=== PATIENT | female | born 1980 | race Caucasian/White ===

== ENCOUNTER → 2023-05-06 | Outpatient (CLI) | payer OTHER, SELFPAY ==
--- NOTE | 2023-05-06 08:55 | RAD_ITS ---
INDICATION: INFERTILITY EXAMINATION/TECHNIQUE: Routine hysterosalpingography was performed. Total Fluoroscopic Time: 30 seconds AND number of Fluoroscopic Images: 2 OR Radiation dosage index: 11.95 mGy COMPARISON: No relevant prior comparison study available FINDINGS: The uterine cavity contour is unremarkable. There are no filling defects or abnormalities. Both fallopian tubes are patent. There is spill of contrast only from the right fallopian tube. RAD/Salpingogram IMPRESSION: Free spill from the right fallopian tube. Electronically Signed: Carl Gerber MD at 10:01 EST ,
--- OUTSIDE RECORDS SUMMARY | 2023-05-06 08:59 | XMS RPT_ITS | CCD ---
Author Name Unknown Address [address] [place] [address] Organization [facility] Care Team Providers Care Program Evaluator Name Role Phone Ra Mg Unavailable Unavailable PROVIDER, UNKNOWN Unavailable Unavailable Mg, Christopher Unavailable Unavailable Mg, Christopher Unavailable Unavailable Mg Christopher D Unavailable Unavailable Unavailable Unavailable Unavailable Mg, Christopher Unavailable Unavailable Mg Christopher D Unavailable Unavailable Mg, Christopher Unavailable Unavailable KIP ABRAMS Attending Unavail able Ra Mg Unavailable [phone] Unavailable Unavailable Ra Mg MD Primary Care Provider RA MG Primary Care Unavaila OLIVIA Maynard Attending Unavailable Medications Completed/Discontinued Medications Medication Drug Class(es) Dates Sig (Normalized) Sig (Original) Cetirizine (3 sources) Histamine-1 Receptor Antagonist cetirizine HCl (ZYRTEC ORAL) doxycycline monohydrate 50 mg oral capsule (3 sources) Tetracycline-clas s Drug Start: 12-21-2022 take 1 capsule by mouth once doxycycline monohydrate (MONODOX) 50 mg capsule Take 1 capsule by mouth every afternoon. 0 12/21/2022 Active Problems Problem Classification Problem Date Documented Da te Episodic/Chronic Esophageal disorders (6 sources) Gastroesophageal reflux disease; Translations: [Esophageal reflux] Chronic Female infertility (1 source) Primary female infertility; Translations: [Female infertility, unspecified] 03-14-2023 Chronic Immunizations and screening for infectious disease (2 sources) Patient encounter status; Translations: [Encounter for screening for human papillomavirus (HPV)] 01-28-2023 Episodic Other inflammatory condition of skin (4 sources) Rosacea; Translations: [Rosacea] Chronic Other screening for suspected conditions (not mental disorders or infectious disease) (1 source) Cancer cervix screening status; Translations: [Encounter for screening for malignant neoplasm of cervix] 01-28-2023 Episodic Results Test Name Value Interpretation Reference Range Facil ity Vital Signs Date Time Vital Sign Value Performing Clinician Chantel chong 01-28-2023 15:21-0400 Body height 168.3 cm Olivia Cantrell MD Work Phone: [facility] 01-28-2023 15:21-0400 Body weight 56.25 kg Olivia Cantrell MD Work Phone: [facility] 01-28-2023 15:21-0400 Diastolic blood pressure 62 mm[Hg] Olivia Cantrell MD Work Phone: [facility] 01-28-2023 15:21-0400 Systolic blood pressure 98 mm[Hg] Olivia Cantrell MD Work Phone: [facility] 05-14-2019 17:06-0500 BMI (Body Mass Index) 20.48 kg/m2 Ra Mg -[facility] Work Phone: 05-14-2019 17:06-0500 Body weight 56.7 kg Ra Mg [facility] Work Phone: 05-14-2019 17:06-0500 BP Diastolic 62 mm[Hg] Ra Mg [facility] Work Phone: Encounters Encounter Date Encounter Type Care Provider Facility Start: 05-02-2023 Telephone encounter Olivia Cantrell MD Work Phone: OB/Gynecology Procedures Date Procedure Procedure Detail Performing Clinician Adenoid excision Ra Mg Endoscopy Ra ahgen Plan of Treatment Date Care Activity Detail Author Start: 01-29-2028 Screening for malignant neoplasm of cervix [facility] Start: 03-28-2023 Depression Assessment Depression Assessment [facility] Start: 11-26-2022 Covid-19 Vaccine () Covid-19 Vaccine () [facility] Start: 11-26-2022 Influenza vaccination Influenza Vaccine (#1) [facility] Start: 09-22-2022 HPV Vaccine (2 - 3-dose SCDM series) HPV Vaccine (2 - 3-dose SCDM series) [facility] Start: 2022 Mammography Mammogram Screening [facility] Start: 2022 Screening for malignant neoplasm of breast Mammogram Screening [facility] Start: 03-28-2022 Depression Assessment Depression Assessment [facility] Start: 2012 HPV Testing HPV Testing [facility] Start: 2003 Pap Testing Pap Testing [facility] Start: 2001 Urine microalbumin profile DTaP,Tdap,Td Vaccine (1 - Tdap) [facility] Start: 2000 Hepatitis C Screening Hepatitis C Screening [facility] Start: 2000 Hepatitis C screening Hepatitis C Screening [facility] Start: 2000 HIV Screening HIV Screening [facility] Start: 2000 HIV screening HIV Screening [facility] Start: 1982 Hepatitis B Vaccine (1 of 3 - 3-dose series) Hepatitis B Vaccine (1 of 3 - 3-dose series) [facility] End: 02-27-2024 PAO SCREENING W LINETTE PAO SCREENING W LINETTE Radiology Routine Encounter for gynecological examination (general) (routine) without abnormal findings Encounter for screening mammogram for breast cancer 1 Occurrences starting 01/28/2023 until 02/27/2024 [facility] Work Phone: Immunizations Immunization Date Immunization Notes Care Provider Maria Del Carmen [facility] 08-25-2022 Human Papillomavirus 9-valent vaccine Olivia Cantrell MD Work Phone: [facility] Payers Date Payer Category Payer Unknown 2022 Unknown [id number] 1980 Unknown [id number] 2.. [id number] 1980 Unknown [id number] 2.. [id number] 1980 Unknown [id number] Unknown [id number] Unknown [id number] Social History Date Type Detail Facility [facility]ion [facility] Work Phone: Start: 01-28-2023 No advance directives No advance dir ectives [facility] Work Phone: Start: 01-28-2023 Tobacco smoking stat us [facility] Never smoked tobacco [facility] Start: 01-28-2023 Tobacco use and exposure Smokeless tobacco non-user [facility] Start: 01-28-2023 Alcohol intake Current drinke r of alcohol (finding) [facility] Start: 01-28-2023 Tobacco use panel [facility] Start: 1980 Sex Assigned At Not on file [facility] National Score (1-10 0), lower number is lower risk 58 [facility] Functional Status Date Assessment Result Facility NEGATED: Highlighted row Functional performance Functional status health issues are not documented Disease [facility] Work Phone: Mental Status Date Assessment Result Facility NEGATED: Highlighted row Cognitive function [Interpretation] Cognitive status health issues are not documented Disease [facility] Work Phone: Note 05-03-2023 Telephone Encounter - Trista Colbert LPN - 05/03/2023 4:35 PM ESTTelephone Encounter - Olivia Cantrell MD - 05/03/2023 4:03 PM EST Note Date & Type Note Facility 05-03-2023 Miscellaneous Notes Formattin g of this note might be different from the original. Pt returned call and was given below information and voiced understanding and had no further questions. Trista Colbert LPN' Have her take 600 mg of ibuprofen after breakfast before arrival. Thanks. Olivia Cantrell MD HSG is scheduled 05/06 @ 0845. Patient to arrive 15 min early to the hospital. Left message for patient to call office. Arabella Highman, RN Attempted to speak to [facility] scheduling. Phone rang continuously. No answer. Will try calling back. Arabella Carroll RN Tuesday this week sometime between my cases would be best. Ok if still bleeding lightly. Thanks! Patient called. Would like to proceed with scheduling HSG @ [facility]. 05/01/23 was cycle day 1. The order was faxed to [facility] in March. Looking at 05/09-05/11 what works best for your schedule? We will then call the hospital. Arabella Carroll RN documented in this encounter [facility] Note 03-14-2023 Telephone Encounter - Alejandra Emmanuel RN - 03/14/2023 4:27 PM ESTTelephone Encounter - Olivia Cantrell MD - 03/14/2023 1:59 PM EST Note Date & Type Note Facility 03-14-2023 Miscellaneous Notes Formattin g of this note might be different from the original. Left message for patient to call office. ALEJANDRA EMMANUEL RN Please give her contact information for [facility]- consult ordered. See if her did semen analysis as they will want that and offer to schedule HSG for her after next menses. Olivia Cantrell MD documented in this encounter [facility] Progress note 01-28-2023 Note Date & Type Note Facility 01-28-2023 Note HNO ID: [id number] Author: Olivia Cantrell MD Service: ? Author Type: Physician Type: Progress Notes Filed: 01/28/2023 3:53 PM Note Text: Mara is a 42 year old who presents for an annual gynecologic exam without complaints. Recently and would like to consider . Not preventing . Partner has never fathered a and does smoke 1 cigar a day. No other health issues. Menses: cycles every 28 days and 5 days of flow. Contraception: none HPV vaccine: had one Last Pap: n/a HPV: N/A History of abnormal pap: No Last mammogram: never Sexually active: Yes OB History T0 L0 SAB0 IAB0 Ectopic0 Multiple0 Live Births0 [employer] History LMP: 01/21/2023 (Exact Date), Having periods Age at Menarche: Age at First : Age at Menopause: [employer] History Comments: Sexual Activity: Yes; Male Contraception: No contraception data on record PAST MEDICAL HISTORY Diagnosis Date Rosacea PAST SURGICAL HISTORY Procedure Laterality Date ADENOIDECTOMY SECONDARY AGE 14/> EXTRACTION ERUPTED TOOTH/EXR ORAL SURGERY PROCEDURE gum surgery FAMILY HISTORY Problem Relation Age of Onset Skin Cancer Mother Skin Cancer Father Hypertension Father SOCIAL HISTORY Social History Tobacco Use Smoking status: Never Smokeless tobacco: Never Vaping Use Vaping Use: Never used Substance Use Topics Alcohol use: Yes Drug use: Never REVIEW OF SYSTEMS Abdomen: No abdominal pain, nausea, vomiting, diarrhea, or constipation. No bloating, early satiety, indigestion, or increased flatulence. Bladder: No dysuria, gross hematuria, urinary frequency, urinary urgency, or incontinence. Breast: No breast lumps, nipple d/c, overlying skin changes, redness or skin retraction. Allergies and current medication updated:Yes EXAM: BP 98/62 Ht 5' 6.25 (1.68m) Wt 124 lb (56.2kg) LMP 01/21/2023 BMI 19.86 kg/(m2). GENERAL: pleasant, female in no apparent distress HEENT: Normocephalic, atraumatic, mucus membranes moist, and no lesions NECK: Supple, full range of motion, no adenopathy, and thyroid normal DERMATOLOGY: Normal, without lesions, non-icteric, and non-hirsute BREAST: soft, non-tender, symmetric, no dominant mass, normal nipple-areolar complex, no lymphadenopathy, and no nipple discharge CHEST: Normal inspiratory effort ABDOMEN: soft, non-tender, and no masses PELVIC: external genitalia normal, normal Bartholin's glands, urethra, [place]'s glands, no vulvar lesions, no cervical lesions, good vaginal support, physiologic discharge present, normal appearing perineal body and perianal region BIMANUAL: uterus normal size, shape and consistency, no adnexal masses, and non-tender RECTOVAGINAL: deferred. NEURO: alert and oriented x3,exam grossly non-focal EXTREMITIES: normal ASSESSMENT/PLAN: 1) Health maintenance: Pap done with HPV. Mammogram starting age 40. 2) Contraception: none. Contraceptive options reviewed and information provided. 3) STD screening: Declined STD check. 4) Follow up one year or sooner as needed Recommended folic acid supplement in anticipation of . Olivia Cantrell MD [facility] History of Present illness Narrative 01-28-2023 Olivia Cantrell MD - 01/28/2023 3:12 PM EDT Note Date & Type Note Facility 01-28-2023 History of Presen t illness Narrative Mara is a 42 year old who presents for an annual gynecologic exam without complaints. Recently and would like to consider . Not preventing . Partner has never fathered a and does smoke 1 cigar a day. No other health issues. Menses: cycles every 28 days and 5 days of flow. Contraception: none HPV vaccine: had one Last Pap: n/a HPV: N/A History of abnormal pap: No Last mammogram: never Sexually active: Yes OB History T0 L0 SAB0 IAB0 Ectopic0 Multiple0 Live Births0 [employer] History LMP: 01/21/2023 (Exact Date), Having periods Age at Menarche: Age at First : Age at Menopause: [employer] History Comments: Sexual Activity: Yes; Male Contraception: No contraception data on record PAST MEDICAL HISTORY Diagnosis Date Rosacea PAST SURGICAL HISTORY Procedure Laterality Date ADENOIDECTOMY SECONDARY AGE 14/> EXTRACTION ERUPTED TOOTH/EXR ORAL SURGERY PROCEDURE gum surgery FAMILY HISTORY Problem Relation Age of Onset Skin Cancer Mother Skin Cancer Father Hypertension Father SOCIAL HISTORY Social History Tobacco Use Smoking status: Never Smokeless tobacco: Never Vaping Use Vaping Use: Never used Substance Use Topics Alcohol use: Yes Drug use: Never REVIEW OF SYSTEMS Abdomen: No abdominal pain, nausea, vomiting, diarrhea, or constipation. No bloating, early satiety, indigestion, or increased flatulence. Bladder: No dysuria, gross hematuria, urinary frequency, urinary urgency, or incontinence. Breast: No breast lumps, nipple d/c, overlying skin changes, redness or skin retraction. Allergies and current medication updated:Yes EXAM: BP 98/62 Ht 5' 6.25 (1.68m) Wt 124 lb (56.2kg) LMP 01/21/2023 BMI 19.86 kg/(m^2). GENERAL: pleasant, female in no apparent distress HEENT: Normocephalic, atraumatic, mucus membranes moist, and no lesions NECK: Supple, full range of motion, no adenopathy, and thyroid normal DERMATOLOGY: Normal, without lesions, non-icteric, and non-hirsute BREAST: soft, non-tender, symmetric, no dominant mass, normal nipple-areolar complex, no lymphadenopathy, and no nipple discharge CHEST: Normal inspiratory effort ABDOMEN: soft, non-tender, and no masses PELVIC: external genitalia normal, normal Bartholin's glands, urethra, [place]'s glands, no vulvar lesions, no cervical lesions, good vaginal support, physiologic discharge present, normal appearing perineal body and perianal region BIMANUAL: uterus normal size, shape and consistency, no adnexal masses, and non-tender RECTOVAGINAL: deferred. NEURO: alert and oriented x3,exam grossly non-focal EXTREMITIES: normal ASSESSMENT/PLAN: 1) Health maintenance: Pap done with HPV. Mammogram starting age 40. 2) Contraception: none. Contraceptive options reviewed and information provided. 3) STD screening: Declined STD check. 4) Follow up one year or sooner as needed Recommended folic acid supplement in anticipation of . Olivia Cantrell MD documented in this encounter [facility] Evaluation note Note Date & Type Note Facility documented in this encounter [facility] Evaluation note Note Date & Type Note Facility documented in this encounter [facility] Reason for referral (narrative) Diagnostic Procedure Only (Routine) - Pending Review Note Date & Type Note Facility Referral ID Status Reason Start Date Expiration Date Visits Requested Visits Authorized [id number] Pending Review Auto-Generat ed Referral 01/28/2023 02/27/2024 1 1 [facility] Summary Purpose Family History No Family History Records Found Mother Name Dates Details Family history of Primary ma lignant neoplasm of skin(173.90, C44.90) Status:Active Father Name Dates Details Family history of Primary ma lignant neoplasm of skin(173.90, C44.90) Status:Active Mother Name Dates Details Family history of Primary ma lignant neoplasm of skin(173.90, C44.90) Status:Active Father Name Dates Details Family history of Primary ma lignant neoplasm of skin(173.90, C44.90) Status:Active Advance Directives No Advanced Directives Records FoundNo Advanced Directives Records FoundNo Advanced Directives Records FoundNo Advanced Directives Records FoundNo Advanced Directives Records FoundNo Advanced Directives Records FoundNo Advanced Directives Records Found Reason for Referral Specialty Diagnoses / Procedures Referred By Homero mckeon Referred To Contact Diagnoses Infertility, female, primary Procedures CONSULT TO INFERTILITY CLINIC OFFICE/OUTPATIENT [facility] 60-74 MINUTES Olivia Cantrell MD [address] [place] [id number] Referral ID Status Reason Start Date Expiration Date Visits Requested Visits Authorized [id number] Authorized PCP Requested Referral Auto-Generate d Referral 3 03/13/2024 1 1 Additional Source Comments INFORMATION SOURCE (unrecogn ized section and content) DATE CREATED AUTHOR AUTHOR'S ORGANIZ ATION 03/27/2018 [facility] DATE CREATED AUTHOR AUTHOR'S ORGANIZ ATION 12/09/2018 [facility] DATE CREATED AUTHOR AUTHOR'S ORGANIZ ATION 01/08/2019 [facility] DATE CREATED AUTHOR AUTHOR'S ORGANIZ ATION 07/24/2019 [facility] DATE CREATED AUTHOR AUTHOR'S ORGANIZ ATION 08/11/2019 [employer] DATE CREATED AUTHOR AUTHOR'S ORGANIZ ATION 05/05/2023 [facility] Source Comments (unrecognize d section and content) In the event this informatio n is protected by the Federal Confidentiality of Alcohol and Drug Abuse Patient Records regulations: The Federal rules restrict any use of the information to criminally investigate or prosecute any alcohol or drug abuse patient.[facility] the event this information is protected by the Federal Confidentiality of Alcohol and Drug Abuse Patient Records regulations: The Federal rules restrict any use of the information to criminally investigate or prosecute any alcohol or drug abuse patient.[facility] the event this information is protected by the Federal Confidentiality of Alcohol and Drug Abuse Patient Records regulations: The Federal rules restrict any use of the information to criminally investigate or prosecute any alcohol or drug abuse patient.[facility] Reason for Visit (unrecogniz ed section and content) Specialty Diagnoses / Procedures Referred By Contac t Referred To Contact Diagnoses Women Health Annual Procedures Women Health Annual Self [facility] [place] [address] Referral ID Status Reason Start Date Expiration Date Visits Requested Visits Authorized [id number] Authorized Patient Cleared - Qualified 100% FAS 01/27/2023 04/27/2023 99 99 Reason Comments Schedule HSG Care Teams (unrecognized sec tion and content) Program Evaluator Relationship Specialty Start Date End Date Ra Mg MD [address] [place] [address] PCP - General Family Medicine 01/28/23 Program Evaluator Relationship Specialty Start Date End Date Ra Mg MD [address] [facility] [place] [address] PCP - General Family Medicine 01/28/23 FOR RECORDS PERTAINING TO PATIENTS WHO ARE OR HAVE BEEN ENROLLED IN A CHEMICAL DEPENDENCY/SUBSTANCEABUSE PROGRAM, SOME INFORMATION MAY BE OMITTED. This clinical summary was aggregated from multiple sources. Caution should be exercised in using it in the provision of clinical care. This summary normalizes information from multiple sources, and as a consequence, information in this document may materially change the coding, format and clinical context of patient data. In addition, data may be omitted in some cases. CLINICAL DECISIONS SHOULD BE BASED ON THE PRIMARY CLINICAL RECORDS. [facility]. provides no warranty or guarantee of the accuracy or completeness of information in this document.
--- NOTE | 2023-05-06 09:54 | PCM.OPRPT ---
Problems Associated Problem List Diagnoses (1) Female infertility: Report of Operation Date of Procedure: 05/06/23 Pre-Operative Diagnosis: infertility Post-Operative Diagnosis: same Surgery/Procedure Performed:: Hysterosalpingogram Description of Surgical Findings:: Normal cervix and vagina. See Radiology report for read on results- prelim- normal uterus, normal right tube and spill, left tube filled, no spill, not dilated Surgeon: Gilda Cantrell Type of Anesthesia: None Special Medications: none Specimen's removed: none Drains: none Estimated Blood Loss (mL): 0 Description of Procedure: The patient was taken to the radiological suite where a timeout was performed. Speculum was placed in the vagina and the cervix was cleansed with Betadine. The HSG catheter was advanced through the cervical os and the small balloon inflated. The HSG dye was injected slowly and steadily as the radiologist performed x-rays. When he determined that the use were adequate, the balloon was deflated and the remainder the uterus injected with dye. The instruments were all removed. They were intact. No vaginal sweep was performed by me. Patient tolerated procedure well. She has a follow-up with [facility] this month to discuss treatment options. Grafts/Implants Used: none Complications none
== END | disposition home or self-care (01) ==
PROVIDERS: PCP Family Medicine; Referring Provider Obstetrics & Gynecology; Visit Provider Obstetrics & Gynecology
DX: N97.9 Female infertility, unspecified (principal)
CPT/HCPCS: 58340; 74740; Q9967

== ENCOUNTER 2024-07-30 09:56 | Inpatient (IN) | payer OTHER, SELFPAY ==
[2024-07-30] VITALS (16 sets, daily range): BP systolic 96–122; BP diastolic 61–83; PULSE 57–83; RESP 12–18; TEMP 36.1–36.7; O2SAT 95–100; BMI 25.1
[2024-07-30] MEDS: Lactated Ringers 1,000 ML 999 ML IV (10:30)
[2024-07-30] MEDS: Acetaminophen 500 MG Tablet 1000 MG PO ×3 (10:59→23:37)
[2024-07-30 11:18] LABS: Absolute Lymphocyte Count 1.95 X10^3/uL (0.83-4.51); Absolute Neutrophil Count 6.8 X10^3/uL (2.0-7.7); Basophil# 0.02 X10^3/uL; Basophil% 0.2 % (0-1); Eosinophil# 0.04 X10^3/uL; Eosinophils% 0.4 % (0-5); Hematocrit 30.5 % (37-47); Hemoglobin 10.1 g/dL (12.0-15.0); Lymphocyte # 1.95 X10^3/ul (0.83-4.51); Lymphocyte % 20.2 % (19-41); Mean Corp Hgb Conc 33.1 g/dL (32-36); Mean Corpuscular Hgb 28.3 pg (27.0-32.0); Mean Corpuscular Volume 85.4 fL (81-99); Mean Platelet Vol. 10.4 fl (6.2-12.0); Monocyte# 0.81 X10^3/uL; Monocyte% 8.4 % (0-10); NRBC Flagged by Analyzer 0 % (0-5); Neutrophil # 6.77 X10^3/uL (2.7-7.7); Neutrophil % 70.4 % (47-70); Platelet Count 239 K/mm3 (150-450); Red Blood Count 3.57 M/mm3 (4.2-5.4); White Blood Count 9.6 K/mm3 (4.4-11.0)
[2024-07-30] MEDS: Lactated Ringers 1,000 ML 150 ML IV (11:37)
[2024-07-30 12:03] LABS: Syphilis Antibodies Nonreactive (Nonreactive)
[2024-07-30] MEDS: Sodium Citrate/Citric Acid 30 ML UDC PO (12:06)
--- NOTE | 2024-07-30 12:08 | HP.PCM.OB_ITS ---
HPI - General General Date of Admission: 07/30/24 Date of Service: 07/30/24 Chief Complaint: Breech presentation HPI Narrative FRANCES CARTAGENA, is a 44 F who presents for primary for breech Maternal Data Information Final ISAAC: 08/05/24 Gestational age: 39+ [facility] Medical History Infertility Breast lump Home Medications ?Medication ?Instructions ?Recorded ?Last Taken ?Type cetirizine 5 mg tablet (Allergy 5 mg PO BID PRN allerg ic symptoms 07/30/24 07/29/24 22:00 History Relief (cetirizine)) vit no.95-ferrous 1 tab PO DAILY prenancy 08/1907/29/24 22:00 History fumarate 28 mg-folic acid 800 mcg tablet () triamcinolone acetonide 55 mcg 2 spray intranasal BID allergy 07/30/24 07/30/24 08:00 History nasal spray aerosol (24 Hour Nasal symptoms Allergy) Allergy/AdvReac Type Severity Reaction Status Date / Time No Known Allergies Allergy Verified 07/30/24 09:54 Surgical History History of surgery Social History Smoking Status: Never smoker History 1 Elective abortions Hx Para 0 Spontaneous abortions Hx # Term Pregnancies Ectopic pregnancies Hx # Pregnancies Multiple births # of living children NST FHR Rate Baby A Variability:: Moderate Accelerations:: 15 x 15 Decelerations:: None NST Reactive:: Yes Vital Signs Vital Signs Vital Signs: 07/30/24 11:49 Temperature 97.9 F Temperature Source Temporal Pulse Rate 83 Respiratory Rate 16 Blood Pressure 111/73 Blood Pressure Mean 85 Blood Pressure Source Monitor Blood Pressure Position Semi-Fowlers Blood Pressure Location Right Arm Pulse Ox 100 Oxygen Delivery Method Room Air Weight Weight: 68.492 kg Body Mass Index (BMI) 25.1 Physical Exam Const alert and no apparent distress General Appearance: cooperative HEENT normocephalic Resp normal respiratory effort Cardio regular rate GI soft to palpation GI Narrative: gravid, nontender, appropriate for gestational age Extremity no calf tenderness General Extremity: edema Skin no wounds Rashes: No rashes noted Psych activity/motor behavior normal Labs Labs Labs: Blood Type A NEGATIVE Antibody Screen POSITIVE Hct 30.5 % (37-47) L Hgb 10.1 g/dL (12.0-15.0) L Syphilis Total Ab Nonreactive (Nonreactive) Assessment & Plan (1) 39 weeks gestation of : (2) Breech presentation: QUALIFIERS: Fetus number: single or unspecified fetus Qualified Code(s): O32.1XX0 - Maternal care for breech presentation, not applicable or unspecified PLAN: Plan Scheduled
[2024-07-30] MEDS: Cefazolin 2 GM in 0.9% Normal Saline (100mL Bag) 100 ML IV (12:24)
[2024-07-30] MEDS: Oxytocin 15 Units/NS 250ml 15 UNITS/250 ML IV.SOLN 83 UNITS IV (13:40)
[2024-07-30] MEDS: Ketorolac 30 MG/ML Syringe IV ×2 (15:17→21:36)
[2024-07-30] MEDS: 0.9% Saline Lock 10 ML Syringe IV ×2 (16:39→21:36)
--- NOTE | 2024-07-30 20:16 | OP.PCM_ITS ---
Assessment & Plan (1) S/P : (2) Breech presentation: QUALIFIERS: Fetus number: single or unspecified fetus Qualified Code(s): O32.1XX0 - Maternal care for breech presentation, not applicable or unspecified (3) 39 weeks gestation of : Maternal Data Information Final ISAAC: 08/03/24 Gestational age: 39+3 Operative Report (OB) Details Procedure Type: low transverse Date of Procedure: 07/30/24 Procedure Start Time: 12:40 Procedure Stop Time: 13:21 Time of Delivery: 12:52 Pre-Operative Diagnosis: Breech Post-Operative Diagnosis: Same as Pre-operative diagnosis Classification: Scheduled Type of Anesthesia: Spinal Drain: Robertson to straight drain Estimated Blood Loss: 800 cc Findings Description of surgery: Patient taken to the OR with spinal and Robertson were placed. She was prepped and draped in the normal sterile fashion. A Pfannenstiel incision was made and carried down to the underlying fascia. The fascia was incised in the midline and extended laterally. The fascia was dissected from the muscle. The muscles divided in the midline. The peritoneum was entered bluntly and extended manually. A bladder blade was placed. A bladder flap was created. A low transverse incision was made and extended bluntly. The hips were elevated to the incision. The body delivered and head easily. The cord was cut and clamped. The placenta was delivered with liat traction. The uterus was exteriorized and cleared of all clot and debris. The incision was repaired with 1-0 Vicryl x 2. The uterus was returned the abdomen, The gutter cleared of all clots. The pe ritoneum was closed with 2-0 Monocryl. The fascia was closed with 1-0 Vicryl. The subcutaneous tissue was reapproximated with 2-0 Monocryl The skin was closed with 4-0. I performed the major parts of the procedure with the RFNA assisting with retraction and closing the skin. The sponge lap and needle count was correct x 2 Surgical findings: prasanna breech presentation Presentation: Prasanna Breech Amniotic Membrane Rupture Type: Artificial Amniotic Fluid Description: Clear Placental Delivery Description: Expressed Placenta Disposition: [facility] Specimen collected: No Cord Vessel Description: 3 Vessels Cord Entanglement: None Infant A gender: Male (1 minute): 8 (5 minute): 9 Delayed Cord Clamping: Yes Boat Loader linseed oil refiner: Yes Metal Furniture Panel Coverer: Hermelinda Summers Tasks completed by library circulation assistant: Opening & closing and Retracting Additional assistant to the president?: No Complications Complications: No
[2024-07-31 00:57] VITALS: RESP 16; O2SAT 95
[2024-07-31 04:03] VITALS: BP 116/69; PULSE 55; RESP 16; TEMP 36.3; O2SAT 96
[2024-07-31] MEDS: Ketorolac 30 MG/ML Syringe IV ×2 (04:05→09:58)
[2024-07-31 04:28] LABS: Hematocrit 26.3 % (37-47); Hemoglobin 8.8 g/dL (12.0-15.0); Mean Corp Hgb Conc 33.5 g/dL (32-36); Mean Corpuscular Hgb 28.8 pg (27.0-32.0); Mean Corpuscular Volume 85.9 fL (81-99); Mean Platelet Vol. 10.5 fl (6.2-12.0); Platelet Count 199 K/mm3 (150-450); RBC Distribution Width CV 13.1 % (11.6-14.6); RBC Distribution Width SD 40.3 fl (35.1-43.9); Red Blood Count 3.06 M/mm3 (4.2-5.4); White Blood Count 16.7 K/mm3 (4.4-11.0)
[2024-07-31] MEDS: Acetaminophen 500 MG Tablet 1000 MG PO ×3 (06:00→17:42)
--- NOTE | 2024-07-31 06:34 | PN.OBGYN_ITS ---
Subjective Subjective Doing well. Ambulating and voiding without difficulty. Mild lochia. Breast feeding. Objective Data Objective Data Vital Signs: Vital Signs Temp Pulse Resp BP Pulse Ox O2 Del Method 97.4 F L 55 L 16 116/69 96 Room Air 07/31/24 04:03 07/31/24 04:03 07/31/24 04:03 07/31/24 04:03 07/31/24 04:03 07/31/24 04:03 Oxygen Delivery Method Room Air Weight: 68.492 kg Body Mass Index (BMI) 25.1 Intake & Output: Intake and Output for Last 24 Hours 07/29/24 07/30/24 07/31/24 23:59 23:59 23:59 Intake Total 1667.5 / 1667.5 Output Total 1400 / 1400 Balance 267.5 / 267.5 Lab / Micro Data 07/31/24 04:10 Labs: Laboratory Results - last 24 hr 07/30/24 10:25: WBC 9.6, RBC 3.57 L, Hgb 10.1 L, Hct 30.5 L, MCV 85.4, MCH 28.3, MCHC 33.1, RDW Std Deviation 40.0, RDW Coeff of Sylvester 13.0, Plt Count 239, MPV 10.4, Immature Gran % (Auto) 0.400, Neut % (Auto) 70.4 H, Lymph % (Auto) 20.2, [place] % (Auto) 8.4, Eos % (Auto) 0.4, Baso % (Auto) 0.2, Absolute Neuts (auto) 6.8, Absolute Lymphs (auto) 1.95, Nucleated RBC % 0, Syphilis Total Ab Nonreactive, Blood Type A NEGATIVE, Antibody Screen POSITIVE, Antibody Identification ANTI-D 07/31/24 04:10: WBC 16.7 H, RBC 3.06 L, Hgb 8.8 L, Hct 26.3 L, MCV 85.9, MCH 28.8, MCHC 33.5, RDW Std Deviation 40.3, RDW Coeff of Sylvester 13.1, Plt Count 199, MPV 10.5 ROS Constitutional Constitutional: Denies headache(s) Cardiovascular Cardiovascular: Denies chest pain or dyspnea Gastrointestinal Gastrointestinal: Denies nausea or vomiting Genitourinary Genitourinary: Denies dysuria Physical Exam Const alert, oriented x3 and no apparent distress General Appearance: cooperative and comfortable Eyes PERRL and EOMs intact bilaterally Resp normal respiratory effort GI soft to palpation and non-tender Uterus Palpation: uterus fundus firm ( below umbilicus) Extremity normal to inspection and full ROM Neuro oriented x3 and CN's II-XII intact bilaterally Psych mental status grossly normal Assessment & Plan (1) S/P : (2) Breech presentation: QUALIFIERS: Fetus number: single or unspecified fetus Qualified Code(s): O32.1XX0 - Maternal care for breech presentation, not applicable or unspecified PLAN: Plan Routine care
[2024-07-31 09:30] VITALS: BP 98/62; PULSE 63; RESP 16; TEMP 36.1; O2SAT 98
[2024-07-31] MEDS: 0.9% Saline Lock 10 ML Syringe IV (09:58)
[2024-07-31] MEDS: Senna/Docusate Sodium 1 Tablet PO (09:59)
[2024-07-31 14:57] VITALS: BP 104/79; PULSE 99; RESP 13; TEMP 36.7; O2SAT 96
[2024-07-31] MEDS: oxyCODONE 5 MG Tablet PO ×2 (15:06→20:10)
[2024-07-31] MEDS: Ibuprofen 600 MG Tablet PO ×2 (15:21→21:48)
[2024-07-31 20:05] VITALS: BP 100/64; PULSE 64; RESP 16; TEMP 36.5; O2SAT 96
[2024-08-01] MEDS: Acetaminophen 500 MG Tablet 1000 MG PO ×4 (01:03→18:47)
[2024-08-01 03:05] VITALS: BP 106/65; PULSE 61; RESP 16; TEMP 36.4; O2SAT 96
[2024-08-01] MEDS: oxyCODONE 5 MG Tablet PO ×4 (03:07→23:34)
[2024-08-01] MEDS: Ibuprofen 600 MG Tablet PO ×4 (04:25→22:10)
[2024-08-01] MEDS: SimETHICONE 80 MG Chewable Tablet PO (08:10)
[2024-08-01 08:12] VITALS: BP 115/67; PULSE 59; RESP 16; TEMP 35.9
--- NOTE | 2024-08-01 08:14 | PCM.PROGNOTE ---
Subjective Subjective patient seen at bedside, doing well. Patient reports good pain control. lochia mild. Pain when getting in and out of bed. breast feeding going well. Objective Data Objective Data Vital Signs: Vital Signs Temp Pulse Resp BP Pulse Ox O2 Del Method 97.5 F L 61 16 106/65 96 Room Air 08/01/24 03:05 08/01/24 03:05 08/01/24 03:05 08/01/24 03:05 08/01/24 03:05 08/01/24 03:05 Oxygen Delivery Method Room Air Weight: 68.492 kg Body Mass Index (BMI) 25.1 Intake & Output: Intake and Output for Last 24 Hours 07/30/24 07/31/24 08/01/24 23:59 23:59 23:59 Intake Total 1667.5 / 1667.5 Output Total 1400 / 1400 1400 / 1400 Balance 267.5 / 267.5 -1400 / -1400 Lab / Micro Data 07/31/24 04:10 Physical Exam Narrative Abd: soft, fundus firm below umbilicus. Dressing dry and intact. Const alert and oriented x3 General Appearance: cooperative HEENT normocephalic Neck General: normal visual inspection GI soft to palpation and non-distended GI Narrative: Fundus firm Extremity normal to inspection and no calf tenderness Skin no rashes or lesions noted Neuro oriented x3 and CN's II-XII intact bilaterally Psych mental status grossly normal Assessment & Plan Assessment/Plan (1) S/P : (2) Breech presentation: QUALIFIERS: Fetus number: single or unspecified fetus Qualified Code(s): O32.1XX0 - Maternal care for breech presentation, not applicable or unspecified (3) 39 weeks gestation of : PLAN: Plan POD#2, Doing well Routine care pain mgmt monitor VS ambulation anticipate dc home tomorrow
[2024-08-01] MEDS: Senna/Docusate Sodium 1 Tablet PO (10:15)
[2024-08-01 16:32] VITALS: BP 109/67; PULSE 78; RESP 16; TEMP 36.2; O2SAT 97
[2024-08-01 19:37] VITALS: BP 116/77; PULSE 67; RESP 16; TEMP 36.4; O2SAT 95
[2024-08-02] MEDS: Acetaminophen 500 MG Tablet 1000 MG PO ×3 (00:39→12:19)
[2024-08-02 02:00] VITALS: BP 102/71; PULSE 65; RESP 18; TEMP 36.1; O2SAT 96
[2024-08-02] MEDS: Ibuprofen 600 MG Tablet PO ×3 (04:24→16:13)
[2024-08-02 07:24] VITALS: BP 115/66; PULSE 58; RESP 18; TEMP 36.4
[2024-08-02] MEDS: oxyCODONE 5 MG Tablet PO ×2 (08:04→15:22)
[2024-08-02] MEDS: Senna/Docusate Sodium 1 Tablet PO (10:37)
--- NOTE | 2024-08-02 12:57 | PCM.PN.OB ---
Subjective Subjective Pt doing well. Having soreness and feels oxycodone is controlling the pain. Lochia normal. No CP, SOB, leg pain, lightheadedness. Ambulating and voiding without difficulty. Objective Data Objective Data Vital Signs: Vital Signs Temp Pulse Resp BP Pulse Ox O2 Del Method 97.5 F L 58 L 18 115/66 96 Room Air 08/02/24 07:24 08/02/24 07:24 08/02/24 07:24 08/02/24 07:24 08/02/24 02:00 08/02/24 07:24 Oxygen Delivery Method Room Air Weight: 151 lb Body Mass Index (BMI) 25.1 Intake & Output: Intake and Output for Last 24 Hours 07/31/24 08/01/24 08/02/24 23:59 23:59 23:59 Output Total 1400 / 1400 Balance -1400 / -1400 Lab / Micro Data 07/31/24 04:10 Physical Exam Const alert and no apparent distress General Appearance: comfortable HEENT normocephalic Resp normal respiratory effort GI soft to palpation GI Narrative: ATTP, non acute, dressing c/d/i Extremity no calf tenderness Extremity Narrative: 1+ pitting edema Assessment & Plan (1) S/P : PLAN: POD#3 s/p primary section. Doing well. Discussed discharge instructions. Follow up next week.
--- NOTE | 2024-08-02 13:03 | DCINST_ITS ---
Discharge Instructions Diet Discharge Diet: No restrictions DC O2, CPAP, BIPAP needs Home O2 Discharge instructions: No Dressing / Incision Discharge Activity: May Drive (once you feel strong enough to slam on a brake or turn a steering wheel sharply, and you are no longer needing pain medication) and May Shower May resume sexual activity in: 6 weeks Ice area for (Minutes): 15 Weight Bearing Status: Weight bearing as tolerated Lifting Restrictions: nothing heavier than baby Dressing / Incision Call your doctor if your incision/area has: Sudden Increased Bleeding, Increased Pain/ Swelling, Foul Smelling Discharge and Swelling at the incision site Call your doctor if you observe: Fever of 101 or Higher, Inability to urinate, Inability to have a bowel movement, Using more than 1 pad per hour, Shortness of breath, Dizziness, Chest pain, Increased palpitations (irregular heartbeat), Calf discomfort and Uncontrolled pain Suture Line Care: Avoid Pulling/Pushing and Avoid Pinching/Bending Remove Dressing in: leave in place till F/U (remove before then if getting wet/saturate under the dressing, or if adhesive bothersome) Cleanse incision/area with: Soap & Water Follow Up Care Please Follow Up With: Arabella Lopez MD When: 1 week incision check 6 week visit Test Results: Test results from this visit will be discussed in further detail at your follow- up appointment, if applicable. Discharge Plan Admission Admit Date/Time: 07/30/24 09:56 Primary Reason for Your Visit: delivery Attending Provider: Arabella Lopez Primary Care Provider: Kim Neal Instructions Patient Instructions: After a Delivery (WP) Discharge Orders/Prescriptions Prescriptions: New ibuprofen 600 mg tablet 600 mg PO Q6H PRN (Reason: pain) Qty: 30 0RF acetaminophen [Pain Relief (acetaminophen)] 325 mg tablet 650 mg PO Q6H PRN (Reason: pain) Qty: 30 0RF oxycodone 5 mg tablet 5 mg PO Q6H PRN (Reason: pain) 7 Days Qty: 5 0RF ferrous sulfate 325 mg (65 mg iron) tablet 325 mg PO QODAY Qty: 15 0RF docusate sodium [Dulcolax Stool Softener (dss)] 100 mg capsule 100 mg PO BID PRN (Reason: constipation) Qty: 30 0RF Continued cetirizine [Allergy Relief (cetirizine)] 5 mg tablet 5 mg PO BID PRN (Reason: allergic symptoms) PNV cmb#95-ferrous fumarate-FA [] 28 mg iron- 800 mcg tablet 1 tab PO DAILY triamcinolone acetonide [24 Hour Nasal Allergy] 55 mcg aerosol,spray 2 spray intranasal BID Rx Instructions: administer into each nostril Referrals / Follow Up: Kim Neal MD [Primary Care Provider] - Disposition Disposition (needs filled in before D/C Order can be placed): Home, Self Care
[2024-08-02 15:24] VITALS: BP 112/72; PULSE 78; RESP 17; TEMP 36.5
== END 2024-08-02 16:22 | disposition home or self-care (01) | DRG 788 ==
PROVIDERS: Admitting Provider Obstetrics & Gynecology; PCP Family Medicine; Referring Provider Obstetrics & Gynecology; Visit Provider Obstetrics & Gynecology
PROC: 10D00Z1 Extraction of Products of Conception, Low, Open Approach (ICD-10-PCS; CPT 59514; principal; 2024-07-30 11:45)
DX: O32.1XX0 Maternal care for breech presentation, not applicable or unspecified (principal); Z37.0 Single live birth; Z3A.39 39 weeks gestation of pregnancy
CPT/HCPCS: 59050; 85025; 85027; 86780; 86850; 86870; 86900; 86901; 99221; A4216; G0378; J2405